=== PATIENT | female | born 1955 | race Caucasian/White ===

== ENCOUNTER 2017-07-12 11:01 | Outpatient (CLI) | payer OTHER | END 2017-07-12 11:15 | LOC: RT 11:01 | PROVIDERS: ATTEND Orthopaedic Surgery | DX: Z01.810 Encounter for preprocedural cardiovascular examination (principal); M24.10 Other articular cartilage disorders, unspecified site ==

== ENCOUNTER 2017-10-31 10:26 | Day surgery (SDC) | payer OTHER ==
[2017-10-31] MEDS ORDERED: LACTATED RINGERS 1,000 ML IV.SOLN IV ONE (10:27)
[2017-10-31] MEDS ORDERED: PROPOFOL 200 MG/20 ML VIAL IV ONE (10:27)
[2017-10-31] MEDS ORDERED: LIDOCAINE HCL/PF 2% 100 MG/5 ML VIAL IJ ONE (10:27)
--- NOTE | 2017-11-04 10:00 | GI Report ---
REFERRING PHYSICIAN: ANGELA Wolf PRODUCTION MINER: Santana Cohen MD PROCEDURE MEDICATION: Propofol as per anesthesia. INDICATIONS: This is a 62-year-old woman who had a colonoscopy 11 years ago. She is referred for a screening. She denies change in bowel habits. Sometimes she feels a little irritation if she has been walking for 3 miles but not severe pain and no change in the caliber of her stools or bleeding. She has been stable cardiopulmonary narvaez. PROCEDURE PERFORMED: Colonoscopy. PROCEDURE: An Olympus video colonoscope was advanced to the rectum and slowly advanced all the way to the cecum. The appendiceal orifice and terminal ileum looked normal. On slow withdrawal, the cecum, ascending colon, and transverse colon with no obvious intraluminal lesions noted. The descending colon and sigmoid with some redundancy. No obvious intraluminal lesions were noted. Retroflexion of the rectum was normal. Patient tolerated the procedure well. FINDINGS: Normal mucosa to the cecum and terminal ileum. RECOMMENDATIONS: 1. Continue high-fiber diet. 2. Consider re-looking at her colon in 10 years, sooner if clinically indicated. cc: ANGELA Wolf Dr.
== END 2017-10-31 10:27 ==
LOC: OPSURG 10:26
PROVIDERS: ATTEND Internal Medicine Gastroenterology
DX: Z12.11 Encounter for screening for malignant neoplasm of colon (principal)
CPT/HCPCS: J2001; J2704; J7120; 45378; S1016

== ENCOUNTER 2017-11-25 14:33 | Outpatient (CLI) | payer OTHER | END 2017-11-25 14:35 | LOC: POD 14:33 | PROVIDERS: ATTEND Podiatrist | DX: M72.2 Plantar fascial fibromatosis (principal) | CPT/HCPCS: 99213 ==